=== PATIENT | female | born 2000 ===

== ENCOUNTER 2024-04-16 09:15 | Outpatient (CLI) | payer MEDICAID ==
[2024-04-16] VITALS (21 sets, daily range): BP systolic 120–150; BP diastolic 77–99; PULSE 96–138
== END 2024-04-16 23:59 | disposition home or self-care (01) ==
LOC: CARD DIAG 09:15
PROVIDERS: ATTEND Internal Medicine Interventional Cardiology
DX: G90.A Postural orthostatic tachycardia syndrome [POTS] (principal); R07.9 Chest pain, unspecified; R42 Dizziness and giddiness
CPT/HCPCS: 93660